=== PATIENT | male | born 1950 | race Caucasian/White ===

== ENCOUNTER 2020-02-06 17:43 | Emergency (ER) | payer MEDICARE, OTHER ==
[2020-02-06 17:53] VITALS: BP 162/82
--- NOTE | 2020-02-06 18:45 | XRAY Report ---
PROCEDURE: Hand 3 View LT INDICATIONS: crush injury TECHNIQUE: 3 views of the hand(s) acquired. COMPARISON: None FINDINGS: Bones: No fractures or dislocations. Mild background degenerative changes of the left hand involving the interphalangeal joints, including the thumb. Degenerative changes of the thumb carpometacarpal j oint. No suspicious bony lesions. Soft tissues: No suspicious soft tissue calcifications. IMPRESSION: Left hand without acute fracture. If there is persistent clinical concern for a radiographically occult fracture, recommend immobiliza tion and repeat imaging in 10 to 14 days. Reviewed by: Travis Mitchell MD on 02/06/2020 6:44 PM PDT Approved by: Travis Mitchell MD on 02/06/2020 6:44 PM PDT Station ID: [id number]
[2020-02-06] MEDS ORDERED: BUFFERED LIDOCAINE 10 ML SYRINGE SUBQ STA (18:57)
[2020-02-06] MEDS ORDERED: TETANUS/DIPHTHERIA/PERTUSSIS 0.5 ML SYRINGE IM ONE (19:07)
--- NOTE | 2020-02-06 19:07 | ED Physician Documentation ---
PD HPI UPPER EXT INJURY - Stated complaint Stated Complaint: LT HAND INJURY - Chief complaint Chief Complaint: Laceration - History obtained from History obtained from: Patient - History of Present Illness Location: Left, Finger Type of injury: Laceration, Crush Where injury occurred: Home Timing - onset: How many hours ago (5) Timing - duration: Hours (5) Timing - details: Abrupt onset Pain level max: 4 Pain level now: 0 Improved by: Rest, Ice, Immobilization Worsened by: Moving, Palpating Associated symptoms: No: Weakness, Numbness, Tingling - Additonal information Additional information: Left third digit laceration from a tractor implement. Patient is right-handed Review of Systems Constitutional: denies: Fever Musculoskeletal: denies: Neck pain, Back pain Neurologic: denies: Headache PD PAST MEDICAL HISTORY - Past Medical History Past Medical History: No - Past Surgical History Past Surgical History: No - Present Medications Home Medications: Ambulatory Orders Medication Instructions Recorded Confirmed HYDROcod/ACETAM 5/325 [Vicodin 1 - 2 ea PO Q6H PRN #15 tablet 05/03/14 5/325] cephALEXin [Keflex] 500 mg PO Q6H #28 capsule 05/03/14 Cephalexin [Keflex] 500 mg PO Q6H #28 capsule 02/06/20 - Allergies Allergies/Adverse Reactions: Allergies Allergy/AdvReac Type Severity Reaction Status Date / Time tetracycline [Tetracycline] Allergy Unknown Verified 05/03/14 16:47 - Social History Does the pt smoke?: No Smoking Status: Never smoker Does the pt drink ETOH?: Yes Does the pt have substance abuse?: No - Immunizations Immunizations are current?: Yes Immunizations: TDAP >10years/unknown PD ED PE NORMAL - Vitals Vital signs reviewed: Yes - General General: Alert and oriented X 3, No acute distress - HEENT HEENT: Moist mucous membranes - Neck Neck: Supple, no meningeal sign - Derm Derm: Warm and dry - Extremities Extremities: Other (Laceration to the dorsum of the left third digit, proximal phalanx. Neurovascular intact. Tendon is visible but intact. Strength was tested against resistance as well in flexion and extension.) - Neuro Neuro: Alert and oriented X 3 Results - Vitals Vitals: Vital Signs - 24 hr 02/06/20 17:49 Temperature 36.6 C Heart Rate 76 Respiratory 18 Rate Blood Pressure 162/82 H O2 Saturation 100 Oxygen O2 Source Room air - Rads (name of study) Left hand x-ray Radiology: Prelim report reviewed, EMP read contemporaneously, See rad report (No acute findings) Procedures - Laceration (location) Left third digit, proximal phalanx, dorsum Length in cm: 4 Wound type: Curved, Flap, Into subcut fat, Clean Neurovascular status: Sensory intact, Motor intact, Vascular intact Tendon involvement: Tendon intact Anesthesia: Lidocaine 1% Wound Preparation: Irrigated copiously NS, Wound explored, To the base Skin layer closure: Nylon, Interrupted, Size #-0 - enter number (4) Other: Patient tolerated well, No complications, Neurovascular intact, Tetanus booster given (Last tetanus was 6 years ago) Complexity: Simple PD MEDICAL DECISION MAKING - ED course Complexity details: reviewed results, considered differential, d/w patient ED course: Laceration repaired. Tolerated well. No tendon injury. Will place on Keflex for home as this is a deep wound. Warnings of infection and instructions on wound care given at bedside. Also counseled on how to minimize scarring. Tdap given. Finger placed in a finger splint to help protect the area. Patient counseled regarding signs and symptoms for which I believe and urgent re- evaluation would be necessary. Patient with good understanding of and agreement to plan and is comfortable going home at this time This document was made in part using voice recognition software. While efforts are made to proofread this document, sound alike and grammatical errors may occur. Departure - Departure Disposition: 01 Home, Self Care Clinical Impression: Finger laceration Qualifiers: Encounter type: initial encounter Finger: middle finger Damage to nail status: without damage Foreign body presence: without foreign body Laterality: left Qualified Code(s): S61.213A - Laceration without foreign body of left middle finger without damage to nail, initial encounter Condition: Good Instructions: ED Laceration Hand Follow-Up: Scotty Mera MD [Primary Care Provider] - Prescriptions: Cephalexin [Keflex] 500 mg PO Q6H #28 capsule Comments: Take all antibiotics until gone. Return if you worsen. You should have a wound check with your doctor in 3 to 5 days. The sutures should be removed in approximately 10 to 14 days. Wear the splint for the next 2 to 3 days, change the outer dressing at least daily. Return if you notice redness, swelling or drainage from the wound. Discharge Date/Time: 02/06/20 20:30
[2020-02-06] MEDS ORDERED: cephALEXin 250 MG CAPSULE PO STA (20:11)
[2020-02-06] MEDS ORDERED: BACITRACIN ZINC OINT 1 PACKET TOP STA (20:11)
== END 2020-02-06 20:30 | disposition home or self-care (01) ==
LOC: ED 17:43
DX: S67.193A Crushing injury of left middle finger, initial encounter (principal); S61.213A Laceration without foreign body of left middle finger without damage to nail, initial encounter; W30.89XA Contact with other specified agricultural machinery, initial encounter; Y93.89 Activity, other specified; Y99.0 Civilian activity done for income or pay; Z23 Encounter for immunization
CPT/HCPCS: 12002; 73130; 90471; 90715; 99283; 99284; A9270

== ENCOUNTER 2022-08-16 07:54 | Outpatient (CLI) | payer MEDICARE ==
--- NOTE | 2022-08-16 21:10 | Ultrasound Report ---
PROCEDURE: Aorta Screening INDICATIONS: HIST OF SMOKING TECHNIQUE: Real time scanning was performed of the aorta and iliac arteries, with image documentatio n. COMPARISON: FINDINGS: Aorta: Proximal aortic diameter measures 2.6 x 2.7 cm. Mid-aorta measures 2.2 x 2.0 cm. Distal aor tic diameter is 2.1 x 2.1 cm. Iliac arteries: Right common iliac artery measures 1.6 x 1.6 cm. Left common iliac artery measures 1.6 x 1.5 cm. IMPRESSION: No aneurysmal dilation. Reviewed by: Becky Frias MD on 08/16/2022 9:09 PM PST Approved by: Becky Frias MD on 08/16/2022 9:09 PM PST Station ID: [id number]
== END 2022-08-16 07:55 | disposition home or self-care (01) ==
LOC: DI 07:54
PROVIDERS: ATTEND Family Medicine
DX: Z13.6 Encounter for screening for cardiovascular disorders (principal); Z87.891 Personal history of nicotine dependence

== ENCOUNTER 2022-10-19 12:14 | Outpatient (CLI) | payer MEDICARE ==
[2022-10-19 12:29] LABS: BASOPHILS % (AUTO) 0.5 %; EOSINOPHILS # (AUTO) 0.1 10^3/uL (0.0-0.7); EOSINOPHILS % (AUTO) 1.8 %; HCT - HEMATOCRIT 41.6 % (42.0-52.0); HGB - HEMOGLOBIN 13.4 g/dL (14.0-18.0); LYMPHOCYTES % (AUTO) 17.8 %; MEAN CORPUSCULAR HEMOGLOBIN 30.2 pg (27.0-31.0); MEAN CORPUSCULAR HGB CONC 32.2 g/dL (32.0-36.0); MEAN CORPUSCULAR VOLUME 93.9 fL (80.0-94.0); MEAN PLATELET VOLUME 9.6 fL (7.4-11.4); MONOCYTES # (AUTO) 0.7 10^3/uL (0.0-1.0); MONOCYTES % (AUTO) 12.3 %; NEUTROPHILS # (AUTO) 3.8 10^3/uL (1.5-6.6); NEUTROPHILS % (AUTO) 67.4 %; PLT - PLATELET COUNT 233 10^3/uL (130-450); RED BLOOD COUNT 4.43 10^6/uL (4.70-6.10); RED CELL DISTRIBUTION WIDTH 12.6 % (12.0-15.0); WHITE BLOOD COUNT 5.6 x10^3/uL (4.8-10.8)
== END 2022-10-19 12:15 | disposition home or self-care (01) ==
LOC: LAB 12:14
PROVIDERS: ATTEND Physician Assistant
DX: R06.00 Dyspnea, unspecified (principal); Z91.018 Allergy to other foods
CPT/HCPCS: 36415; 81599; 82785; 85025; 86001

== ENCOUNTER 2024-04-16 09:45 | Emergency (ER) | payer MEDICARE ==
[2024-04-16 10:16] LABS: BASOPHILS # (AUTO) 0.1 10^3/uL (0.0-0.1); BASOPHILS % (AUTO) 0.6 %; EOSINOPHILS # (AUTO) 0.2 10^3/uL (0.0-0.7); EOSINOPHILS % (AUTO) 1.9 %; HCT - HEMATOCRIT 42.7 % (42.0-52.0); HGB - HEMOGLOBIN 13.4 g/dL (14.0-18.0); LYMPHOCYTES # (AUTO) 0.8 10^3/uL (1.5-3.5); LYMPHOCYTES % (AUTO) 9.4 %; MEAN CORPUSCULAR HEMOGLOBIN 29.5 pg (27.0-31.0); MEAN CORPUSCULAR HGB CONC 31.4 g/dL (32.0-36.0); MEAN CORPUSCULAR VOLUME 93.8 fL (80.0-94.0); MEAN PLATELET VOLUME 10.1 fL (7.4-11.4); MONOCYTES # (AUTO) 0.6 10^3/uL (0.0-1.0); MONOCYTES % (AUTO) 6.6 %; NEUTROPHILS # (AUTO) 6.8 10^3/uL (1.5-6.6); NEUTROPHILS % (AUTO) 81.3 %; PLT - PLATELET COUNT 278 10^3/uL (130-450); RED BLOOD COUNT 4.55 10^6/uL (4.70-6.10); RED CELL DISTRIBUTION WIDTH 13.4 % (12.0-15.0); WHITE BLOOD COUNT 8.4 x10^3/uL (4.8-10.8)
[2024-04-16 10:35] LABS: ALBUMIN 4.3 g/dL (3.2-5.5); ALBUMIN/GLOBULIN RATIO 1.5 (1.0-2.2); ALKALINE PHOSPHATASE 75 IU/L (42-121); ALT ALANINE AMINOTRANSFERASE 32 IU/L (10-60); AST ASPARTATE AMINOTRANSFERASE 19 IU/L (10-42); BILIRUBIN,TOTAL 0.7 mg/dL (0.2-1.0); BUN - BLOOD UREA NITROGEN 28 mg/dL (6-20); CALCIUM 9.7 mg/dL (8.5-10.3); CARBON DIOXIDE - CO2 23 mmol/L (21-32); CHLORIDE 106 mmol/L (101-111); CREATININE 0.7 mg/dL (0.6-1.3); GFR - MDRD 111 (>89); GLUCOSE 166 mg/dL (74-104); LIPASE < 10 U/L (11-82); POTASSIUM 3.8 mmol/L (3.5-4.5); SODIUM 138 mmol/L (135-145); TOTAL PROTEIN 7.2 g/dL (6.4-8.9)
--- NOTE | 2024-04-16 10:50 | XRAY Report ---
PROCEDURE: Chest 1V INDICATIONS: dyspnea TECHNIQUE: One view of the chest was acquired. COMPARISON: 07/31/2022 FINDINGS: Surgical changes and devices: None. Lungs and pleura: Diffuse interstitial opacities. Mild peribronchial cuffing. Hazy right basilar air space opacity. Mediastinum: Mediastinal contours appear normal. Heart size is mildly enlarged. Bones and chest wall: No suspicious bony lesions. Overlying soft tissues appear unremarkable. IMPRESSION: Hazy right basilar airspace opacity, concerning for pneumonia. Superimposed mild to moderate pulmonary edema. Reviewed by: Leonard Sue MD on 04/16/2024 10:48 AM PDT Approved by: Leonard Sue MD on 04/16/2024 10:48 AM PDT Station ID: [id number]
[2024-04-16] MEDS: SODIUM CHLORIDE 0.9% 1,000 ML IV STA (11:16)
[2024-04-16 11:26] LABS: B. PARAPERTUSSIS- RESP PCR PAN NOT DETECTED; B. PERTUSSIS- RESP PCR PANEL NOT DETECTED; C. PNEUMONIAE- RESP PCR PANEL NOT DETECTED; CORONAVIRUS 229E-RESP PCR NOT DETECTED; CORONAVIRUS HKU1-RESP PCR NOT DETECTED; CORONAVIRUS NL63-RESP PCR NOT DETECTED; CORONAVIRUS OC43-RESP PCR NOT DETECTED; HUMAN METAPNEUMOVIRUS NOT DETECTED; INFLUENZA A- RESP PCR PANEL NOT DETECTED; INFLUENZA B - RESP PCR PANEL NOT DETECTED; M. PNEUMONIAE- RESP PCR PANEL NOT DETECTED; PARAINFLUENZA VIRUS 1 NOT DETECTED; PARAINFLUENZA VIRUS 2 NOT DETECTED; PARAINFLUENZA VIRUS 3 NOT DETECTED; PARAINFLUENZA VIRUS 4 NOT DETECTED; RHINOVIRUS/ENTEROVIRUS NOT DETECTED; RSV- RESP PCR PANEL NOT DETECTED; SARS-CoV-2 -RESP PCR PANEL NOT DETECTED
--- NOTE | 2024-04-16 12:30 | ED Physician Documentation ---
History of Present Illness - Stated complaint Stated Complaint: SOA, SWEATING - Chief complaint Chief Complaint: Resp - History obtained from History obtained from: Patient - Additonal information Additional information: The patient comes to the emergency department chief complaint of shortness of breath. He states he was on a bus bringing a tour group to [place] when he just began to feel more and more dyspneic. He states that it was hot on the bus and he did not know if that was the problem. He has a history of asthma and he thought maybe he was having an asthma attack. He denies any chest pain, nausea, or lightheadedness. He did get a little bit diaphoretic. The patient states he was feeling completely at baseline before. He states this happened one other time previously and nobody knew why he became short of breath. No cardiac history. No other complaints at this time. PD PAST MEDICAL HISTORY - Past Medical History Past Medical History: Yes Respiratory: Asthma - Past Surgical History Past Surgical History: No - Present Medications Home Medications: Ambulatory Orders Medication Instructions Recorded Confirmed HYDROcod/ACETAM 5/325 [Vicodin 1 - 2 ea PO Q6H PRN #15 tablet 05/03/14 5/325] cephALEXin [Keflex] 500 mg PO Q6H #28 capsule 05/03/14 cephALEXin [Keflex] 500 mg PO Q6H #28 capsule 02/06/20 Azithromycin [Zithromax] 0 mg PO DAILY #6 tablet 04/16/24 - Allergies Allergies/Adverse Reactions: Allergies Allergy/AdvReac Type Severity Reaction Status Date / Time tetracycline [Tetracycline] Allergy Unknown Verified 04/16/24 09:54 - Social History Does the pt smoke?: No Smoking Status: Never smoker Does the pt drink ETOH?: Yes Does the pt have substance abuse?: No - Immunizations Immunizations are current?: Yes Immunizations: TDAP >10years/unknown PD ED PE NORMAL - Vitals Vital signs reviewed: Yes - General General: Alert and oriented X 3, Well developed/nourished, Other (Moderate respiratory distress, labored respirations, speaking in phrases.) - HEENT HEENT: Atraumatic, EOMI, Moist mucous membranes - Neck Neck: Supple, no meningeal sign - Cardiac Cardiac: RRR, No murmur - Respiratory Respiratory: Other (Moderate respiratory distress, labored respirations, speaking in phrases; Mild rales right lower lung field.) - Abdomen Abdomen: Soft, Non tender, Non distended - Derm Derm: Normal color, Warm and dry, No rash - Extremities Extremities: No deformity, No edema - Neuro Neuro: Other (Alert, grossly intact) - Psych Psych: Normal mood, Normal affect Results - Vitals Vitals: Vital Signs - 24 hr 04/16/24 04/16/24 04/16/24 09:49 10:24 11:00 Temperature 36.4 C L Heart Rate 124 H 102 H 99 Respiratory 32 H 20 20 Rate Blood Pressure 194/118 H 132/86 H 144/100 H O2 Saturation 87 L 94 93 If not protocol 2 : Oxygen Flow, liters/minute 04/16/24 04/16/24 11:30 12:00 Temperature Heart Rate 93 90 Respiratory 18 20 Rate Blood Pressure 140/91 H 139/92 H O2 Saturation 96 98 If not protocol : Oxygen Flow, liters/minute Oxygen O2 Source Room air Oxygen Flow Rate 2 - EKG (time done) 1027 EKG releavant findings:: EKG personally interpreted by author of this note. Relevant findings are: Rate: Rate (enter#) (102) [place]: Normal Intervals: Normal [place] QRS: Normal Ischemia: Normal ST segments Compare to prior EKG: Old EKG unavailable Computer interpretation: Agree with computer - Labs Labs: Laboratory Tests 04/16/24 04/16/24 04/16/24 10:08 10:08 10:08 WBC 8.4 RBC 4.55 L Hgb 13.4 L Hct 42.7 MCV 93.8 MCH 29.5 MCHC 31.4 L RDW 13.4 Plt Count 278 MPV 10.1 Neut # (Auto) 6.8 H Lymph # (Auto) 0.8 L Mathews # (Auto) 0.6 Eos # (Auto) 0.2 Baso # (Auto) 0.1 Absolute Nucleated RBC 0.00 Nucleated RBC % 0.0 Sodium 138 Potassium 3.8 Chloride 106 Carbon Dioxide 23 Anion Gap 9.0 BUN 28 H Creatinine 0.7 Estimated GFR (MDRD) 111 Glucose 166 H Calcium 9.7 Total Bilirubin 0.7 AST 19 ALT 32 Alkaline Phosphatase 75 Troponin I High Sens 14.0 B-Natriuretic Peptide 917 H Total Protein 7.2 Albumin 4.3 Globulin 2.9 Albumin/Globulin Ratio 1.5 Lipase < 10 L Nasal Adenovirus (PCR) Nasal B. parapertussis DNA (PCR) Nasal Coronavir 229E PCR Nasal Coronavir HKU1 PCR Nasal Coronavir NL63 PCR Nasal Coronavir OC43 PCR Nasal Enterovir/Rhinovir PCR Nasal Influenza B PCR Nasal Influenza A PCR Nasal Parainfluen 1 PCR Nasal Parainfluen 2 PCR Nasal Parainfluen 3 PCR Nasal Parainfluen 4 PCR Nasal RSV (PCR) Nasal B.pertussis DNA PCR Nasal C.pneumoniae (PCR) Rk Human Metapneumo PCR Nasal M.pneumoniae (PCR) Nasal SARS-CoV-2 (PCR) 04/16/24 10:29 WBC RBC Hgb Hct MCV MCH MCHC RDW Plt Count MPV Neut # (Auto) Lymph # (Auto) Mathews # (Auto) Eos # (Auto) Baso # (Auto) Absolute Nucleated RBC Nucleated RBC % Sodium Potassium Chloride Carbon Dioxide Anion Gap BUN Creatinine Estimated GFR (MDRD) Glucose Calcium Total Bilirubin AST ALT Alkaline Phosphatase Troponin I High Sens B-Natriuretic Peptide Total Protein Albumin Globulin Albumin/Globulin Ratio Lipase Nasal Adenovirus (PCR) NOT DETECTED Nasal B. parapertussis DNA (PCR) NOT DETECTED Nasal Coronavir 229E PCR NOT DETECTED Nasal Coronavir HKU1 PCR NOT DETECTED Nasal Coronavir NL63 PCR NOT DETECTED Nasal Coronavir OC43 PCR NOT DETECTED Nasal Enterovir/Rhinovir PCR NOT DETECTED Nasal Influenza B PCR NOT DETECTED Nasal Influenza A PCR NOT DETECTED Nasal Parainfluen 1 PCR NOT DETECTED Nasal Parainfluen 2 PCR NOT DETECTED Nasal Parainfluen 3 PCR NOT DETECTED Nasal Parainfluen 4 PCR NOT DETECTED Nasal RSV (PCR) NOT DETECTED Nasal B.pertussis DNA PCR NOT DETECTED Nasal C.pneumoniae (PCR) NOT DETECTED Rk Human Metapneumo PCR NOT DETECTED Nasal M.pneumoniae (PCR) NOT DETECTED Nasal SARS-CoV-2 (PCR) NOT DETECTED - Rads (name of study) Chest x-ray Relevant Findings:: Final report received, See rad report (Hazy right basilar airspace opacity, concerning for pneumonia) PD Medical Decision Making - ED course Complexity details: reviewed results, re-evaluated patient, considered differential, d/w patient ED course: The patient was placed on oxygen as his saturation was 87% on arrival in the emergency department. He was worked up with EKG which showed mild sinus tachycardia and PVCs but otherwise unremarkable. He was worked up with chest x- ray showed a right basilar infiltrate. CBC showed a normal white blood cell count, slight anemia, and normal platelets. BNP was 917 and troponin 14, with normal kidney function and electrolytes. Patient was started on antibiotics. He was reevaluated and found to be feeling much better, with oxygen saturation 95 to 100% on room air with a good [place] after ambulating to and from the bathroom. The patient was given the option to stay in the hospital, given his initial hypoxia, but he stated he would prefer to go home. I felt that as long as his postexertional sats were high, then this was reasonable. The patient is advised regarding the need to return, should his shortness of breath recur. Departure - Departure Disposition: Home, Self Care Clinical Impression: Pneumonia Qualifiers: Pneumonia type: due to unspecified organism Laterality: right Lung location: lower lobe of lung Qualified Code(s): J18.9 - Pneumonia, unspecified organism Condition: Stable Instructions: Pneumonia Dc Prescriptions: Azithromycin [Zithromax] 0 mg PO DAILY #6 tablet Comments: Your chest x-ray showed a pneumonia in the bottom of your right lung. Your labs otherwise look good and your oxygen saturations much better than when he first came in. We have treated you with antibiotics here and you will need to finish the course at home as an outpatient. A prescription has been electronically transmitted to the [facility] pharmacy in [place] for your antibiotics. Please pick this up today and take your next dose tomorrow. If you begin to feel severely short of breath again, please return to the emergency department. Otherwise, we will expect the antibiotic course to get rid of your pneumonia and as long as you are feeling better, you should not need more antibiotics or specific follow-up for this. Forms: PCP List
[2024-04-16] MEDS: cefTRIAXone 2 GM in SODIUM CHLORIDE 0.9% MINIBAG 100 ML IV STA (12:42)
[2024-04-16] MEDS: AZITHROMYCIN 250 MG TABLET PO STA (12:42)
[2024-04-16 13:29] VITALS: BP 133/94; O2SAT 96
== END 2024-04-16 13:24 | disposition home or self-care (01) ==
LOC: ED 09:45
DX: J18.9 Pneumonia, unspecified organism (principal)
CPT/HCPCS: 36415; 71045; 80053; 83690; 83880; 84484; 85025; 87040; 87633; 93005; 96361; 96365; 99284; 99285; A9270